=== PATIENT | female | born 1980 | race Caucasian/White ===

== ENCOUNTER 2023-05-04 18:39 | Emergency (ER) | payer OTHER, SELFPAY ==
--- NOTE | 2023-05-04 18:48 | ED.FEMALEGU ---
HPI - Female Genitourinary General Chief complaint: Urogenital-Female Stated complaint: Urinary Problem Time Seen by Provider: 05/04/23 18:48 Source: patient Mode of arrival: ambulatory Limitations: no limitations History of Present Illness HPI Narrative: Columba is a 42-year-old female patient presenting to the clinic today with complaints of a possible UTI. She reports she started having burning with urination at the end of her stream as well as some urgency. She denies any fever or chills. Denies any flank pain or belly pain Related Data Allergies Allergy/AdvReac Type Severity Reaction Status Date / Time ciprofloxacin AdvReac Nausea and Verified 05/04/23 18:56 Vomiting Review of Systems Review of Systems: Pertinent positives per HPI. Patient denies any fever, chills, rash, headache, visual changes, dizziness, cough, runny nose, sore throat, shortness of breath, chest pain, palpitations, nausea, vomiting, diarrhea, constipation, abdominal pain. PMFSH Comments At the time of my signature, I reviewed and agree with the nursing past medical, surgical, social, and family history. There is no relevant family history pertinent to the patient complaint. Exam Narrative: General: Well-developed, well nourished, in no apparent distress. Head: Normocephalic, atraumatic. Cardio: Regular rate and rhythm, s1 and s2 normal, no murmur appreciated. Resp: Clear to auscultation bilaterally, no rhonchi, rales, wheezing or rubs. Abdomen: Soft, pliable, bowel sounds present in all quadrants, non-tender to palpation, no organomegly, no CVAT tenderness. Course Course Emergency Course: Portions of this record may have been created with voice recognition software. Level of Care: Express Care Visit Vital Signs Vital signs: Vital signs reviewed MDM - Female Genitourinary MDM Narrative Medical decision making narrative: At the time of visit patient is resting comfortably on the exam table. UA is positive for leukocytes, blood, and ketones. We will send urine for culture. Will place the patient on Bactrim. Supportive measures were discussed with the patient she voiced understanding discharge instructions and agrees to treatment plan. Differential Diagnosis Differential diagnosis: Likely urinary tract infection and cystitis Discharge Plan Discharge Clinical Impression: UTI (urinary tract infection) Qualifiers: Urinary tract infection type: acute cystitis Hematuria presence: with hematuria Qualified Code(s): N30.01 - Acute cystitis with hematuria Patient Disposition: Home, Self-Care Condition: Stable Instructions: Antibiotic Form, Urinary Tract Infection in Women (ED) Additional Instructions: UA is positive for leukocytes, blood, and ketones. Will place patient on Bactrim and send urine for culture. Increase fluids and stay well hydrated Wipe front to back. May use wet wipes. Avoid tub baths If sexually active- pee before and after intercourse. Wear cotton panties Avoid tight clothing up against the genitals Follow up with your PCP in 1 week if symptoms persist. Prescriptions: New sulfamethoxazole-trimethoprim [Bactrim DS] 800-160 mg tablet 1 tablet PO Q12H 7 Days Qty: 14 0RF Follow-up/Referrals: PHYSICIAN,FOOD QUALITY TECHNICIAN [Primary Care Provider] - Time of Disposition: 19:00 Quality NIHSS Nursing Documentation ED NIHSS nursing documentation: reviewed/agree
[2023-05-04 18:49] VITALS: BP 110/67; PULSE 68; RESP 16; TEMP 36.8; O2SAT 100
== END 2023-05-04 19:05 | disposition home or self-care (01) ==
PROVIDERS: Emergency Provider Nurse Practitioner Family
DX: N30.01 Acute cystitis with hematuria (principal)
CPT/HCPCS: 81003; 87077; 87086; 87088; 99213; G0463

== ENCOUNTER 2024-03-22 07:53 | Outpatient (CLI) | payer OTHER, SELFPAY ==
--- NOTE | ~2024-03-22 | CT_ITS ---
EXAMINATION: CT abdomen pelvis w con DATE: 03/22/2024 08:26 INDICATION: Weight loss. Constipation. TECHNIQUE: Computed tomography (CT) of the abdomen and pelvis was performed with 100 mL Omnipaque 350 intravenous contrast. Automated exposure control and iterative reconstruction technique were employe d. The dose-length product was 254.93 mGy-cm. COMPARISON: None. FINDINGS: The visualized portions of the lung bases are clear without pneumonia or pleural effusion. The heart is normal. No pericardial effusion. The liver, gallbladder, spleen, pancreas, adrenal gland s, and kidneys are normal. There are no dilated loops of bowel. The appendix is normal. There are no pathologically enlarged lymph nodes. There is physiologic fluid in the pelvis. There is mild lumbar s pondylosis. IMPRESSION: 1. No etiology for the patient's symptoms. Reviewed, dictated and finalized at location A.
== END 2024-03-22 07:54 | disposition home or self-care (01) ==
PROVIDERS: Visit Provider Nurse Practitioner Family
DX: K59.00 Constipation, unspecified (principal); R14.0 Abdominal distension (gaseous); R63.4 Abnormal weight loss
CPT/HCPCS: 74177; Q9967

== ENCOUNTER 2024-04-10 02:21 | Day surgery (SDC) | payer OTHER, SELFPAY ==
[2024-04-02 16:08] VITALS: BMI 21.4
[2024-04-10 09:05] VITALS: BP 127/79; PULSE 81; RESP 16; TEMP 37.5; O2SAT 100; BMI 21.1
[2024-04-10 09:19] LABS: BEDSIDEPREGUCG Negative (Negative)
[2024-04-10] MEDS: LACTATED RINGERS 1,000 ML 150 ML IV CONT (09:29)
--- NOTE | 2024-04-10 09:50 | PM.HPGS ---
History of Present Illness History of Present Illness Consent: Risks, benefits, and alternatives have been discussed and questions answered. Patient agrees to proceed with procedure. Chief complaint: Abnormal Wt. Loss, Constipation, Early Satiety Narrative: Columba Hill is a 43 year old female with constipation and weight loss but mostly because she has early satiety, can not eat full meal because gets bloated, had scopes in 2016, never had gastric emptying study. CT scan negative Review of Systems Review of Systems: All systems reviewed & are unremarkable except as noted in HPI and below PMFSH Past Medical History Medical History Ovarian cyst Surgical History Surgical History History of removal of ovarian cyst Social History Social History Years smoked: 5 Smoking status: Light tobacco smoker (vapes ) Tobacco type: e-cigarettes/vaping Alcohol intake: current Substance use: never Substance use type: does not use Living arrangements: with family Spiritual care concerns: No Meds Home Medications and Allergies Home Medications Medication Instructions Recorded Confirmed Type No Home Medications 04/02/24 04/10/24 History Allergies Allergy/AdvReac Type Severity Reaction Status Date / Time ciprofloxacin AdvReac Severe Nausea and Verified 04/10/24 09:13 Vomiting Vital Signs Vital Signs - 24 hr 04/10/24 09:05 Temperature 99.5 F Pulse Rate 81 Respiratory Rate 16 Blood Pressure 127/79 Pulse Oximetry 100 Oxygen Delivery Room Air Exam Const: General: comfortable and no acute distress HENMT: Face/Nose/Sinus: Normal nares present Eyes: General: appearance normal, both eyes and all related structures Neck: Neck: no JVD Resp: Auscultation: clear to auscultation bilaterally Cardio: Rate: regular rate Rhythm: regular rhythm GI: Inspection: non-distended GI Palp: Yes Soft to palpation Skin: General skin exam: normal color Neuro: General: gait normal Speech: normal speech Extrem: General: normal to inspection Psych: Mental Status: mental status grossly normal Assessment and Plan Assessment and plan (1) Abdominal bloating: Code(s): R14.0 - Abdominal distension (gaseous) Status: Acute Assessment and Plan: egd with bx (2) Early satiety: Code(s): R68.81 - Early satiety Status: Acute Assessment and Plan: if scopes negative then will set up gastric emptying study (3) Constipation: Qualifiers: Constipation type: chronic idiopathic constipation Qualified Code(s): K59.04 - Chronic idiopathic constipation Code(s): K59.00 - Constipation, unspecified Status: Acute Assessment and Plan: colonoscopy
--- NOTE | 2024-04-10 09:56 | P.PNAN_ITS ---
Anes - Initial Pre Proc Eval Procedure: Operation Date: 04/10/24 10:00 Proposed Procedures p Esophagogastroduodenoscopy & Colonoscopy - Brandan Sanders MD Date/Time: 04/10/24 09:56 Surgeon: Brandan Sanders MD Pre Op Diagnosis: Abnormal Wt. Loss, Constipation, Early Satiety Patient Data Age: 43 Gender: F Height: 1.65 m Weight: 57.6 kg Last Vital Signs Temp 99.5 F 04/10/24 09:05 Pulse 81 04/10/24 09:05 Resp 16 04/10/24 09:05 BP 127/79 04/10/24 09:05 Pulse Ox 100 04/10/24 09:05 O2 Del Method Room Air 04/10/24 09:05 Allergies Allergy/AdvReac Type Severity Reaction Status Date / Time ciprofloxacin AdvReac Severe Nausea and Verified 04/10/24 09:13 Vomiting Home Medications Medication Instructions Recorded Confirmed Type No Home Medications 04/02/24 04/10/24 History Laboratory Tests 04/10/24 09:05 POC Urine HCG, Qual Negative (Negative) Patient hx anesthesia problems: none Family hx anesthesia problems: none Results Review: All pre-operative results and documents have been reviewed as part of the pre-operative evaluation. [facility] Past Medical History Medical History Ovarian cyst Surgical History Surgical History History of removal of ovarian cyst Social History Social History Years smoked: 5 Smoking status: Light tobacco smoker (vapes ) Tobacco type: e-cigarettes/vaping Alcohol intake: current Substance use: never Substance use type: does not use Living arrangements: with family Spiritual care concerns: No Anes - Eval Final PreProcedure Day of Procedure 04/10/24 09:56 Patient weight: normal Heart: regular rate and rhythm Lungs: clear to auscultation Airway: Mallampati scale class II Neurological: alert and oriented Last oral intake: >/= 8 hours ASA classification: II Emergent: no Anesthetic plan: proceed Anesthesia type and monitoring: general GIVS and standard monitoring Results Review: All pre-operative results and documents have been reviewed as part of the pre- operative evaluation. Informed Consent: The patient's anesthetic plan and its attendant risks and benefits were discussed with the patient/family/POA. Questions were solicited and answers provided to the satisfaction of the patient/family/POA.
--- NOTE | 2024-04-10 10:09 | SUR.OPER ---
EGD [id number]. Colon start time 1009.
[2024-04-10 10:21] VITALS: BP 100/64; PULSE 75; RESP 25; O2SAT 100
[2024-04-10 10:31] VITALS: BP 107/64; PULSE 62; RESP 21; O2SAT 100
[2024-04-10 10:41] VITALS: BP 104/66; PULSE 64; RESP 18; O2SAT 100
== END 2024-04-10 10:53 | disposition home or self-care (01) ==
PROVIDERS: Anesthesiology; Referring Provider Nurse Practitioner Family; Visit Provider Internal Medicine Gastroenterology
PROC: 0DJ08ZZ Inspection of Upper Intestinal Tract, Via Natural or Artificial Opening Endoscopic (ICD-10-PCS; CPT 43235; principal; 2024-04-10 10:00)
DX: K64.8 Other hemorrhoids (principal); Z98.890 Other specified postprocedural states; F17.290 Nicotine dependence, other tobacco product, uncomplicated
CPT/HCPCS: 43239; 45378; 88305; J2001; J2704; J7120